=== PATIENT | female | born 1945 | race Caucasian/White ===

== ENCOUNTER 2017-06-08 15:55 | Inpatient (IN) ==
[2017-06-08] MEDS ORDERED: Albuterol 2.5 MG/3 ML NEBULIZER IH PRN (18:42)
[2017-06-08] MEDS: Apixaban 5 MG TABLET PO SCH (20:30)
[2017-06-08] MEDS: Benzonatate 100 MG CAPSULE PO SCH (20:30)
[2017-06-09] MEDS: Methocarbamol 500 MG TABLET PO PRN ×2 (03:35→20:54)
[2017-06-09] MEDS ORDERED: CEFTRIAXONE SODIUM 2 GM IV SCH (09:00)
[2017-06-09] MEDS: (Liraglutide [Victoza 3-Pak] 1.2 MG) PO SCH (09:50)
[2017-06-09] MEDS: Aspirin Enteric Coated 81 MG Tablet PO SCH (09:51)
[2017-06-09] MEDS: Benzonatate 100 MG CAPSULE PO SCH ×3 (09:51→20:54)
[2017-06-09] MEDS: Cholecalciferol (D-3) 1,000 UNIT TABLET PO SCH (09:51)
[2017-06-09] MEDS: Diltiazem CD (24hr) 120 MG CAPSULE PO SCH (09:52)
[2017-06-09] MEDS: Apixaban 5 MG TABLET PO SCH ×2 (09:54→20:53)
--- NOTE | 2017-06-09 14:18 | Internal Med History&Physical ---
Date of Encounter: 06/09/17 Time of Encounter: 12:15 Assessment and Plan (1) Empyema of right pleural space Current visit: No Status: Acute Strep pneumonia was cultured on pleural fluid. Continue IV Rocephin through approximately June 23. Will add lactobacillus. (2) Diabetes Current visit: No Status: Chronic We will check hemoglobin A1c in a.m. Continue Victoza and Accu-Cheks with SSI. Qualifiers: Diabetes mellitus type: type 2 Diabetes mellitus fci insulin use: without fci use Diabetes mellitus complication status: with hyperglycemia Qualified Code(s): E11.65 - Type 2 diabetes mellitus with hyperglycemia (3) Pelvic mass Current visit: No Status: Acute Await pathology report. She is scheduled to see oncologist at [facility] in a few days. (4) Essential hypertension Current visit: No Status: Chronic Continue diltiazem, lisinopril, and metoprolol. (5) A-fib Current visit: No Status: Chronic Continue Eliquis Qualifiers: Atrial fibrillation type: paroxysmal Qualified Code(s): I48.0 - Paroxysmal atrial fibrillation (6) Anemia Current visit: No Status: Suspected We will order anemia testing in a.m. Qualifiers: Anemia type: other cause Other causes of anemia: chronic disease, other Qualified Code(s): D63.8 - Anemia in other chronic diseases classified elsewhere Internal Medicine - H&P: HPI Chief complaint: Pleural effusion, abdominal mass Admitted From: Hospital to Hospital Transfer Plans for Post Hospital Care: Home History of present illness: Ms. Serrato is a 72 year old female who was hospitalized at [facility] May 24- after presenting with dyspnea and a large right pleural effusion. She had thoracentesis initially which was followed by video-assisted thorascopic decortication with pleural space washout. No malignant cells were seen on cytology of the pleural fluid. Blood cultures were positive for strep pneumoniae. She completed 2 weeks out of a total of 4 weeks of IV antibiotics for empyema. She was transferred to [facility] swing bed for ongoing care needs. She had biopsy of a right adnexal mass 06/06/2017 with pathology report pending. There was concern for ovarian malignancy. Past Med Surg Social Fam HX - Past Medical History Medical history: asthma, diabetes, GERD, hypertension, other Psychiatric history: no psych history - Past Surgical History Surgical History: no surgical history - Social History Smoking Status: Former smoker Smokeless Tobacco Status: No Alcohol use: none Drug use: none - Family History Brother Hx Family Cardiac Disorders: Yes Internal Medicine - H&P: Meds Benzonatate [Tessalon] 100 mg PO TID #20 capsule 05/22/17 [Rx] Albuterol Neb [Proventil Neb] 2.5 mg IH Q6H PRN 05/24/17 [History] Albuterol Sulfate [Albuterol Inhaler] 2 puff IH QID PRN 05/24/17 [History] Aspirin [Lo-Dose Aspirin EC] 81 mg PO DAILY 05/24/17 [History] Cholecalciferol (Vitamin D3) [Vitamin D3] 5,000 unit PO QWEEK 05/24/17 [History] Liraglutide [Victoza 3-Rene] 1.2 mg PO DAILY 05/24/17 [History] Lisinopril 2.5 mg PO DAILY 05/24/17 [History] Meclizine HCl [Verticalm] 25 mg PO DAILY PRN 05/24/17 [History] Ranitidine HCl [Acid Senior Linux Unix Administrator] 150 mg PO BID PRN 05/24/17 [History] Sertraline [Zoloft] 50 mg PO DAILY 05/24/17 [History] Apixaban [Eliquis] 5 mg PO BID #60 tablet 06/07/17 [Rx] Ceftriaxone Sodium [Ceftriaxone] 2 gm IV DAILY 13 Days #13 vial.port 06/07/17 [ Rx] Diltiazem CD (24hr) [Cardizem CD] 120 mg PO DAILY #30 cap.er.24h 06/07/17 [Rx] Docusate [Colace] 100 mg PO BID #30 capsule 06/07/17 [Rx] Methocarbamol [Robaxin] 500 mg PO Q6HR PRN #30 tablet 06/07/17 [Rx] Metoprolol [Lopressor] 25 mg PO BID #60 tablet 06/07/17 [Rx] Zolpidem [Ambien] 5 mg PO HS PRN 5 Days #5 tablet 06/07/17 [Rx] 3 Allergy/AdvReac Type Severity Reaction Status Date / Time Amoxicillin [From Augmentin] Allergy Rash Verified 05/24/17 10:40 azithromycin Allergy Hives Verified 05/24/17 10:40 cephalexin Allergy See Verified 06/07/17 11:56 Comments clavulanic acid Allergy Rash Verified 05/24/17 10:40 [From Augmentin] doxycycline Allergy Rash Verified 05/24/17 10:40 omeprazole Allergy Rash Verified 05/24/17 10:40 All Systems PM: A 10-system review of systems was performed and is negative for pertinent findings except as documented above in the HPI. Review of systems: Gen.: She states her weight has been stable the past few months Cardiovascular: She has history of hypertension and was found to have atrial fibrillation during her [facility] stay. She denies heart failure VT DVT or pulmonary embolus Respiratory: She smoked from age [age] up to 2 packs per days. She had PFTs approximately 2012 and was told she had COPD. She does not wear home oxygen. GI: She denies disorders of her liver gallbladder or exocrine pancreas : She has kidney stones. She denies other kidney or bladder disorders Neurologic: She denies large distribution strokes or seizures. Endocrine: She was diagnosed with DM 2 approximately 2011. She denies thyroid disease or hyperlipidemia Hematology/oncology: She has anemia but denies blood disorders or documented malignancy Psychiatric: She has anxiety and depression but denies other mental health issues [place] skeletal: She has DJD but denies gout or other bone joint or muscle disorders. - Constitutional Vitals: Temp Pulse Resp BP Pulse Ox 98.3 F 80 20 130/79 92 06/09/17 07:42 06/09/17 09:16 06/09/17 07:42 06/09/17 07:42 06/09/17 09:16 Exam: Gen.: She is a well developed well-nourished female sitting on the side of bed resting comfortably HEENT: Head is atraumatic and normocephalic. Eyes: EOMI. There is no scleral icterus. Mouth: Mucosa is moist. Neck: Supple and nontender. There is no thyromegaly or adenopathy noted. Heart: Regular without murmurs gallops or ectopics Lungs: No wheezes or crackles are heard. Back: She has a healing incision in her mid right posterior thorax from recent surgery. Back is straight without flank tenderness otherwise. Abdomen: Soft and nontender. No masses or guarding are noted. Extremities: There is no cyanosis edema or clubbing noted. Dorsalis pedis and posttibial pulses are 1-2 over 2 bilaterally. Neurologic: Mental status: She is talkative and a good historian. Cranial nerves: Smile is symmetric. Forehead wrinkles bilaterally. Tongue protrudes midline. EOMI. Motor: There is no pronator drift. Cerebellar: Finger to nose is intact bilaterally. Skin: Warm and dry
[2017-06-09] MEDS: Ondansetron ODT 4 MG TAB.RAPDIS SL PRN (14:43)
[2017-06-09] MEDS: Lactobacillus 1 EACH CAP.SPRINK PO SCH (20:54)
[2017-06-10 05:57] LABS: Basophils # 0.1 K/mcL (0.0-0.2); Basophils % 1.2 %; Eosinophils # 0.3 K/mcL (0.0-0.6); Eosinophils % 5.2 %; Hematocrit 28.9 % (35.3-44.9); Hemoglobin 9.4 g/dL (11.5-15.4); Immature Granulocytes % 0.5 % (0-4); Lymphocytes # 1.7 K/mcL (0.6-4.6); Lymphocytes % 27.5 %; Mean Corpuscular HGB Conc 32.5 g/dL (31.6-35.5); Mean Corpuscular Hemoglobin 30.1 pg (28.0-33.3); Mean Corpuscular Volume 92.6 fL (83.0-100.0); Mean Platelet Volume 9.4 fL (9.4-12.4); Monocytes # 0.6 K/mcL (0.0-1.3); Monocytes % 9.2 %; Neutrophils # 3.4 K/mcL (1.6-8.9); Platelet Count 401 K/mcL (140-400); Red Blood Count 3.12 M/mcL (3.82-4.97); Red Cell Distribution Width 13.6 % (11.5-14.5); Segmented Neutrophils % 56.4 %
[2017-06-10] MEDS: (Liraglutide [Victoza 3-Pak] 1.2 MG) PO SCH (08:38)
[2017-06-10] MEDS: Diltiazem CD (24hr) 120 MG CAPSULE PO SCH (08:39)
[2017-06-10] MEDS: Aspirin Enteric Coated 81 MG Tablet PO SCH (08:39)
[2017-06-10] MEDS: Cholecalciferol (D-3) 1,000 UNIT TABLET PO SCH (08:39)
[2017-06-10] MEDS: Lactobacillus 1 EACH CAP.SPRINK PO SCH ×2 (08:39→20:19)
[2017-06-10] MEDS: Apixaban 5 MG TABLET PO SCH ×2 (08:44→20:23)
[2017-06-10 09:40] LABS: Estimated Average Glucose 146 mg/dl; Hemoglobin A1C 6.7 %
[2017-06-10 09:49] LABS: % Iron Saturation 12 % (15-50); Ferritin 354 ng/ml (10-120); Iron 22 mcg/dL (50-170); Transferrin 126 mg/dL (203-362)
[2017-06-10 10:14] LABS: Folate 11.3 ng/mL (3.0-16.0)
--- NOTE | 2017-06-10 14:09 | Internal Med Progress Note ---
Date of Encounter: 06/10/17 Time of Encounter: 13:50 - Assessment and plan (1) Empyema of right pleural space Current Visit: No Status: Acute Assessment and plan: June 10. Strep pneumonia was cultured on pleural fluid. Continue IV Rocephin with lactobacillus through approximately June 23. (2) Diabetes Current Visit: No Status: Chronic Assessment and plan: June 10. Hemoglobin A1c was acceptable at 6.7%. Continue Victoza and Accu- Cheks with SSI. 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 Biopsy report pending. She will follow up at [facility] after discharge. (4) Essential hypertension Current Visit: No Status: Chronic Assessment and plan: June 10. Continue diltiazem, lisinopril, and metoprolol (5) A-fib Current Visit: No Status: Chronic Assessment and plan: June 10. Continue Eliquis Qualifiers: Atrial fibrillation type: paroxysmal Qualified Code(s): I48.0 - Paroxysmal atrial fibrillation (6) Anemia Current Visit: No Status: Suspected Assessment and plan: June 10. Anemia testing showed iron 22, transferrin saturation 12%, transferrin 126, ferritin 354, B12 905, and folate 11.3. Will start ferrous sulfate with vitamin C in a.m. Qualifiers: Anemia type: other cause Other causes of anemia: chronic disease, other Qualified Code(s): D63.8 - Anemia in other chronic diseases classified elsewhere - Subjective Interval history: June 10. She has no new complaints. - Constitutional Vitals: Temp Pulse Resp BP Pulse Ox 98.1 F 71 22 165/77 95 06/10/17 06:38 06/10/17 06:38 06/10/17 06:38 06/10/17 06:38 06/10/17 06:38 Exam: She is resting comfortably in bed and appears in no acute distress. Her affect is bright and cheerful. I reviewed her medications. I reviewed pertinent lab results with her. Internal Medicine: Result - Labs CBC & Chem 7: 06/10/17 05:42 Labs: Short CBC 06/10/17 Range/Units 05:42 WBC 6.0 (4.3-11.1) K/mcL Hgb 9.4 L (11.5-15.4) g/dL Hct 28.9 L (35.3-44.9) % Plt Count 401 H (140-400) K/mcL Neutrophils # 3.4 (1.6-8.9) K/mcL Consult Discharge Plan - Plan Referrals: Fermin Horton, [Primary Care Provider] - 1 week
[2017-06-10] MEDS: Benzonatate 100 MG CAPSULE PO SCH ×2 (15:54→20:19)
[2017-06-10] MEDS: Methocarbamol 500 MG TABLET PO PRN (20:23)
[2017-06-11] MEDS: Ibuprofen 400 MG TABLET PO PRN (02:27)
[2017-06-11] MEDS: Ascorbic Acid 500 MG TABLET PO SCH (06:23)
[2017-06-11] MEDS ORDERED: CefTRIAXone 2,000 MG VIAL ONE (08:49)
[2017-06-11] MEDS ORDERED: cefTRIAXone 2,000 MG in Water for inj. (sterile) 20 ML 20 ML IVPB SCH (09:00)
[2017-06-11] MEDS: Apixaban 5 MG TABLET PO SCH ×2 (09:00→20:00)
[2017-06-11] MEDS: Lactobacillus 1 EACH CAP.SPRINK PO SCH ×2 (09:10→20:01)
[2017-06-11] MEDS: Diltiazem CD (24hr) 120 MG CAPSULE PO SCH (09:11)
[2017-06-11] MEDS: Cholecalciferol (D-3) 1,000 UNIT TABLET PO SCH (09:11)
[2017-06-11] MEDS: Aspirin Enteric Coated 81 MG Tablet PO SCH (09:11)
[2017-06-11] MEDS: Benzonatate 100 MG CAPSULE PO SCH ×3 (09:11→20:00)
[2017-06-11] MEDS: cefTRIAXone 2,000 MG in Water for inj. (sterile) 20 ML 20 ML IVP SCH (09:15)
[2017-06-11] MEDS: (Liraglutide [Victoza 3-Pak] 1.2 MG) PO SCH (09:16)
[2017-06-11] MEDS: Ondansetron ODT 4 MG TAB.RAPDIS SL PRN (18:47)
[2017-06-11] MEDS: Famotidine 20 MG TABLET PO PRN (18:49)
[2017-06-12] MEDS: Ibuprofen 400 MG TABLET PO PRN (04:51)
[2017-06-12] MEDS: Methocarbamol 500 MG TABLET PO PRN ×2 (05:02→20:37)
[2017-06-12] MEDS: Ascorbic Acid 500 MG TABLET PO SCH (05:02)
[2017-06-12] MEDS: Lactobacillus 1 EACH CAP.SPRINK PO SCH ×2 (10:26→20:33)
[2017-06-12] MEDS: Aspirin Enteric Coated 81 MG Tablet PO SCH (10:26)
[2017-06-12] MEDS: Apixaban 5 MG TABLET PO SCH ×2 (10:26→20:37)
[2017-06-12] MEDS: Cholecalciferol (D-3) 1,000 UNIT TABLET PO SCH (10:26)
[2017-06-12] MEDS: cefTRIAXone 2,000 MG in Water for inj. (sterile) 20 ML 20 ML IVP SCH (10:27)
[2017-06-12] MEDS: Benzonatate 100 MG CAPSULE PO SCH ×2 (10:28→20:38)
[2017-06-12] MEDS: (Liraglutide [Victoza 3-Pak] 1.2 MG) PO SCH (10:28)
[2017-06-12] MEDS: Diltiazem CD (24hr) 120 MG CAPSULE PO SCH (10:30)
--- NOTE | 2017-06-12 10:47 | Internal Med Progress Note ---
Date of Encounter: 06/12/17 Time of Encounter: 10:40 - Assessment and plan (1) Empyema of right pleural space Current Visit: No Status: Acute Assessment and plan: June 10. Strep pneumonia was cultured on pleural fluid. Continue IV Rocephin with lactobacillus through approximately June 23. (2) Diabetes Current Visit: No Status: Chronic Assessment and plan: June 10. Hemoglobin A1c was acceptable at 6.7%. Continue Victoza and Accu- Cheks with SSI. 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 Biopsy report pending. She will follow up at [facility] after discharge. (4) Essential hypertension Current Visit: No Status: Chronic Assessment and plan: June 10. Continue diltiazem, lisinopril, and metoprolol (5) A-fib Current Visit: No Status: Chronic Assessment and plan: June 10. Continue Eliquis Qualifiers: Atrial fibrillation type: paroxysmal Qualified Code(s): I48.0 - Paroxysmal atrial fibrillation (6) Anemia Current Visit: No Status: Chronic Assessment and plan: June 10. Anemia testing showed iron 22, transferrin saturation 12%, transferrin 126, ferritin 354, B12 905, and folate 11.3. Will start ferrous sulfate with vitamin C in a.m. June 12. Continue ferrous sulfate with vitamin C. Qualifiers: Anemia type: other cause Other causes of anemia: chronic disease, other Qualified Code(s): D63.8 - Anemia in other chronic diseases classified elsewhere - Subjective Interval history: June 10. She has no new complaints. June 12. She has no new complaints. - Constitutional Vitals: Temp Pulse Resp BP Pulse Ox 98.2 F 70 16 170/74 96 06/12/17 07:15 06/12/17 07:15 06/12/17 07:15 06/12/17 07:15 06/12/17 07:15 Exam: She is resting comfortably in bed and appears in no acute distress. Her affect is bright and cheerful. I reviewed her medications. Internal Medicine: Result - Labs CBC & Chem 7: 06/10/17 05:42 Consult Discharge Plan - Plan Referrals: Stiltner,Fermin D, [Primary Care Provider] - 1 week
[2017-06-12] MEDS ORDERED: Benzonatate 100 MG CAPSULE PO PRN (17:21)
[2017-06-13] MEDS: Ascorbic Acid 500 MG TABLET PO SCH (06:21)
[2017-06-13] MEDS: Cholecalciferol (D-3) 1,000 UNIT TABLET PO SCH (09:18)
[2017-06-13] MEDS: Aspirin Enteric Coated 81 MG Tablet PO SCH (09:18)
[2017-06-13] MEDS: Diltiazem CD (24hr) 120 MG CAPSULE PO SCH (09:18)
[2017-06-13] MEDS: Lactobacillus 1 EACH CAP.SPRINK PO SCH ×2 (09:18→20:01)
[2017-06-13] MEDS: Apixaban 5 MG TABLET PO SCH ×2 (09:18→20:01)
[2017-06-13] MEDS: (Liraglutide [Victoza 3-Pak] 1.2 MG) PO SCH (09:19)
[2017-06-13] MEDS: cefTRIAXone 2,000 MG in Water for inj. (sterile) 20 ML 20 ML IVP SCH (09:19)
[2017-06-13] MEDS: Ibuprofen 400 MG TABLET PO PRN (18:10)
[2017-06-13] MEDS: Methocarbamol 500 MG TABLET PO PRN (20:01)
[2017-06-14] MEDS: Ascorbic Acid 500 MG TABLET PO SCH (06:21)
[2017-06-14] MEDS: Cholecalciferol (D-3) 1,000 UNIT TABLET PO SCH (09:45)
[2017-06-14] MEDS: Apixaban 5 MG TABLET PO SCH ×2 (09:45→20:07)
[2017-06-14] MEDS: Aspirin Enteric Coated 81 MG Tablet PO SCH (09:45)
[2017-06-14] MEDS: Diltiazem CD (24hr) 120 MG CAPSULE PO SCH (09:45)
[2017-06-14] MEDS: Lactobacillus 1 EACH CAP.SPRINK PO SCH ×2 (09:45→20:07)
[2017-06-14] MEDS: cefTRIAXone 2,000 MG in Water for inj. (sterile) 20 ML 20 ML IVP SCH (10:07)
[2017-06-14] MEDS: (Liraglutide [Victoza 3-Pak] 1.2 MG) PO SCH (10:07)
--- NOTE | 2017-06-14 12:20 | Internal Med Progress Note ---
Date of Encounter: 06/14/17 Time of Encounter: 12:10 - Assessment and plan (1) Empyema of right pleural space Current Visit: No Status: Acute Assessment and plan: June 10. Strep pneumonia was cultured on pleural fluid. Continue IV Rocephin with lactobacillus through approximately June 23. (2) Diabetes Current Visit: No Status: Chronic Assessment and plan: June 10. Hemoglobin A1c was acceptable at 6.7%. Continue Victoza and Accu- Cheks with SSI. June 14. Blood sugars acceptable. Continue present regimen. Qualifiers: Diabetes mellitus type: type 2 Diabetes mellitus keno terminal operator insulin use: without keno terminal operator use Diabetes mellitus complication status: with hyperglycemia Qualified Code(s): E11.65 - Type 2 diabetes mellitus with hyperglycemia (3) Pelvic mass Current Visit: No Status: Acute Assessment and plan: June 10. Biopsy report pending. She will follow up at [facility] after discharge. (4) Essential hypertension Current Visit: No Status: Chronic Assessment and plan: June 10. Continue diltiazem, lisinopril, and metoprolol (5) A-fib Current Visit: No Status: Chronic Assessment and plan: June 10. Continue Eliquis Qualifiers: Atrial fibrillation type: paroxysmal Qualified Code(s): I48.0 - Paroxysmal atrial fibrillation (6) Anemia Current Visit: No Status: Chronic Assessment and plan: June 10. Anemia testing showed iron 22, transferrin saturation 12%, transferrin 126, ferritin 354, B12 905, and folate 11.3. Will start ferrous sulfate with vitamin C in a.m. June 12. Continue ferrous sulfate with vitamin C. Qualifiers: Anemia type: other cause Other causes of anemia: chronic disease, other Qualified Code(s): D63.8 - Anemia in other chronic diseases classified elsewhere - Subjective Interval history: June 10. She has no new complaints. June 12. She has no new complaints. June 14. She reports occasional epistaxis episode. She has occasional nausea. - Constitutional Vitals: Temp Pulse Resp BP Pulse Ox 97.7 F 81 20 142/81 97 06/14/17 06:51 06/14/17 09:08 06/14/17 06:51 06/14/17 09:08 06/14/17 09:08 Exam: She is sitting in a chair at bedside eating lunch and appears comfortable. Her affect is bright and cheerful. I reviewed her medications and past lab results. Internal Medicine: Result - Labs CBC & Chem 7: 06/10/17 05:42 Consult Discharge Plan - Plan Referrals: Fermin Horton DO [Primary Care Provider] - 1 week
[2017-06-14] MEDS: Methocarbamol 500 MG TABLET PO PRN (20:07)
[2017-06-15] MEDS: Methocarbamol 500 MG TABLET PO PRN (05:07)
[2017-06-15] MEDS: Ascorbic Acid 500 MG TABLET PO SCH (05:07)
[2017-06-15 05:20] LABS: Basophils # 0.1 K/mcL (0.0-0.2); Basophils % 1.2 %; Eosinophils # 0.5 K/mcL (0.0-0.6); Hematocrit 33.8 % (35.3-44.9); Hemoglobin 11.1 g/dL (11.5-15.4); Immature Granulocytes % 0.4 % (0-4); Lymphocytes # 2.6 K/mcL (0.6-4.6); Lymphocytes % 34.4 %; Mean Corpuscular HGB Conc 32.8 g/dL (31.6-35.5); Mean Corpuscular Volume 91.4 fL (83.0-100.0); Mean Platelet Volume 9.2 fL (9.4-12.4); Monocytes # 0.7 K/mcL (0.0-1.3); Monocytes % 9.8 %; Neutrophils # 3.6 K/mcL (1.6-8.9); Platelet Count 312 K/mcL (140-400); Red Cell Distribution Width 13.1 % (11.5-14.5); Segmented Neutrophils % 47.2 %
[2017-06-15 05:38] LABS: BUN/Creatinine Ratio 18 (6-26); Blood Urea Nitrogen 10 mg/dL (8-23); Calcium 8.5 mg/dL (8.6-10.3); Carbon Dioxide 34 mEq/L (23-29); Chloride 100 mEq/L (98-107); Glucose 111 mg/dL (70-105); Osmolality,Calculated 282 (280-300); Potassium 4.1 mEq/L (3.5-5.1); Sodium 136 mEq/L (136-145); eGFR For African Americans > 60 (> 60); eGFR For Non-African Americans > 60 (> 60)
[2017-06-15] MEDS: Aspirin Enteric Coated 81 MG Tablet PO SCH (10:04)
[2017-06-15] MEDS: Diltiazem CD (24hr) 120 MG CAPSULE PO SCH (10:04)
[2017-06-15] MEDS: Apixaban 5 MG TABLET PO SCH ×2 (10:04→20:38)
[2017-06-15] MEDS: Lactobacillus 1 EACH CAP.SPRINK PO SCH ×2 (10:04→20:38)
[2017-06-15] MEDS: Cholecalciferol (D-3) 1,000 UNIT TABLET PO SCH (10:05)
[2017-06-15] MEDS: cefTRIAXone 2,000 MG in Water for inj. (sterile) 20 ML 20 ML IVP SCH (10:07)
[2017-06-15] MEDS: (Liraglutide [Victoza 3-Pak] 1.2 MG) PO SCH (10:08)
[2017-06-15] MEDS: Acetaminophen 325 MG TABLET PO PRN (18:45)
[2017-06-16] MEDS: Acetaminophen 325 MG TABLET PO PRN (04:43)
[2017-06-16] MEDS: Ascorbic Acid 500 MG TABLET PO SCH (04:53)
[2017-06-16] MEDS: Diltiazem CD (24hr) 120 MG CAPSULE PO SCH (08:59)
[2017-06-16] MEDS: Apixaban 5 MG TABLET PO SCH ×2 (09:00→21:52)
[2017-06-16] MEDS: Cholecalciferol (D-3) 1,000 UNIT TABLET PO SCH (09:00)
[2017-06-16] MEDS: Lactobacillus 1 EACH CAP.SPRINK PO SCH ×2 (09:00→21:52)
[2017-06-16] MEDS: Aspirin Enteric Coated 81 MG Tablet PO SCH (09:00)
[2017-06-16] MEDS: (Liraglutide [Victoza 3-Pak] 1.2 MG) PO SCH (09:01)
[2017-06-16] MEDS: cefTRIAXone 2,000 MG in Water for inj. (sterile) 20 ML 20 ML IVP SCH (09:49)
[2017-06-16] MEDS: Methocarbamol 500 MG TABLET PO PRN (21:52)
[2017-06-17] MEDS: Ascorbic Acid 500 MG TABLET PO SCH (06:09)
[2017-06-17] MEDS: Lactobacillus 1 EACH CAP.SPRINK PO SCH ×2 (08:07→21:10)
[2017-06-17] MEDS: Diltiazem CD (24hr) 120 MG CAPSULE PO SCH (08:07)
[2017-06-17] MEDS: Aspirin Enteric Coated 81 MG Tablet PO SCH (08:07)
[2017-06-17] MEDS: Apixaban 5 MG TABLET PO SCH ×2 (08:08→21:10)
[2017-06-17] MEDS: Cholecalciferol (D-3) 1,000 UNIT TABLET PO SCH (08:08)
[2017-06-17] MEDS: (Liraglutide [Victoza 3-Pak] 1.2 MG) PO SCH (08:09)
[2017-06-17] MEDS: cefTRIAXone 2,000 MG in Water for inj. (sterile) 20 ML 20 ML IVP SCH (08:10)
--- NOTE | 2017-06-17 14:36 | Internal Med Progress Note ---
Date of Encounter: 06/17/17 Time of Encounter: 14:25 - Assessment and plan (1) Empyema of right pleural space Current Visit: No Status: Acute Assessment and plan: June 10. Strep pneumonia was cultured on pleural fluid. Continue IV Rocephin with lactobacillus through approximately June 23. (2) Diabetes Current Visit: No Status: Chronic Assessment and plan: June 10. Hemoglobin A1c was acceptable at 6.7%. Continue Victoza and Accu- Cheks with SSI. June 14. Blood sugars acceptable. Continue present regimen. Qualifiers: Diabetes mellitus type: type 2 Diabetes mellitus salvage determiner insulin use: without salvage determiner use Diabetes mellitus complication status: with hyperglycemia Qualified Code(s): E11.65 - Type 2 diabetes mellitus with hyperglycemia (3) Pelvic mass Current Visit: No Status: Acute Assessment and plan: June 10. Biopsy report pending. She will follow up at [facility] after discharge. (4) Essential hypertension Current Visit: No Status: Chronic Assessment and plan: June 10. Continue diltiazem, lisinopril, and metoprolol (5) A-fib Current Visit: No Status: Chronic Assessment and plan: June 10. Continue Eliquis Qualifiers: Atrial fibrillation type: paroxysmal Qualified Code(s): I48.0 - Paroxysmal atrial fibrillation (6) Anemia Current Visit: No Status: Chronic Assessment and plan: June 10. Anemia testing showed iron 22, transferrin saturation 12%, transferrin 126, ferritin 354, B12 905, and folate 11.3. Will start ferrous sulfate with vitamin C in a.m. June 12. Continue ferrous sulfate with vitamin C. Qualifiers: Anemia type: other cause Other causes of anemia: chronic disease, other Qualified Code(s): D63.8 - Anemia in other chronic diseases classified elsewhere - Subjective Interval history: June 10. She has no new complaints. June 12. She has no new complaints. June 14. She reports occasional epistaxis episode. She has occasional nausea. June 17. She has no new complaints and feels better overall. - Constitutional Vitals: Temp Pulse Resp BP Pulse Ox 98.6 F 63 22 159/78 97 06/17/17 06:28 06/17/17 06:28 06/17/17 06:28 06/17/17 06:28 06/17/17 06:28 Exam: She is resting comfortably in bed and appears in no acute distress. Her affect is bright and cheerful. I reviewed her medications and lab results. Internal Medicine: Result - Labs CBC & Chem 7: 06/15/17 05:15 06/15/17 05:15 Consult Discharge Plan - Plan Referrals: Fermin Horton DO [Primary Care Provider] - 1 week
[2017-06-17] MEDS: Methocarbamol 500 MG TABLET PO PRN (21:11)
[2017-06-18] MEDS: Ascorbic Acid 500 MG TABLET PO SCH (06:41)
[2017-06-18] MEDS: Diltiazem CD (24hr) 120 MG CAPSULE PO SCH (09:13)
[2017-06-18] MEDS: Aspirin Enteric Coated 81 MG Tablet PO SCH (09:13)
[2017-06-18] MEDS: Lactobacillus 1 EACH CAP.SPRINK PO SCH ×2 (09:13→21:08)
[2017-06-18] MEDS: Cholecalciferol (D-3) 1,000 UNIT TABLET PO SCH (09:14)
[2017-06-18] MEDS: (Liraglutide [Victoza 3-Pak] 1.2 MG) PO SCH (09:16)
[2017-06-18] MEDS: cefTRIAXone 2,000 MG in Water for inj. (sterile) 20 ML 20 ML IVP SCH (09:16)
[2017-06-18] MEDS: Apixaban 5 MG TABLET PO SCH ×2 (09:17→21:10)
[2017-06-18] MEDS: Acetaminophen 325 MG TABLET PO PRN (16:00)
[2017-06-18] MEDS: Methocarbamol 500 MG TABLET PO PRN (21:09)
[2017-06-18] MEDS: Ondansetron ODT 4 MG TAB.RAPDIS SL PRN (21:13)
[2017-06-19] MEDS: Ascorbic Acid 500 MG TABLET PO SCH (05:49)
[2017-06-19] MEDS: Diltiazem CD (24hr) 120 MG CAPSULE PO SCH (09:11)
[2017-06-19] MEDS: Apixaban 5 MG TABLET PO SCH ×2 (09:11→20:41)
[2017-06-19] MEDS: Lactobacillus 1 EACH CAP.SPRINK PO SCH ×2 (09:12→20:41)
[2017-06-19] MEDS: Cholecalciferol (D-3) 1,000 UNIT TABLET PO SCH (09:13)
[2017-06-19] MEDS: Aspirin Enteric Coated 81 MG Tablet PO SCH (09:13)
[2017-06-19] MEDS: (Liraglutide [Victoza 3-Pak] 1.2 MG) PO SCH (09:13)
[2017-06-19] MEDS: cefTRIAXone 2,000 MG in Water for inj. (sterile) 20 ML 20 ML IVP SCH (09:14)
--- NOTE | 2017-06-19 10:34 | Internal Med Progress Note ---
Date of Encounter: 06/19/17 Time of Encounter: 10:25 - Assessment and plan (1) Empyema of right pleural space Current Visit: No Status: Acute Assessment and plan: June 10. Strep pneumonia was cultured on pleural fluid. Continue IV Rocephin with lactobacillus through approximately June 23. (2) Diabetes Current Visit: No Status: Chronic Assessment and plan: June 10. Hemoglobin A1c was acceptable at 6.7%. Continue Victoza and Accu- Cheks with SSI. June 14. Blood sugars acceptable. Continue present regimen. 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 Biopsy report pending. She will follow up at [facility] after discharge. June 19. She has an appointment tomorrow at [facility] to review path report and discuss any needed treatment plans (4) Essential hypertension Current Visit: No Status: Chronic Assessment and plan: June 10. Continue diltiazem, lisinopril, and metoprolol (5) A-fib Current Visit: No Status: Chronic Assessment and plan: June 10. Continue Eliquis Qualifiers: Atrial fibrillation type: paroxysmal Qualified Code(s): I48.0 - Paroxysmal atrial fibrillation (6) Anemia Current Visit: No Status: Chronic Assessment and plan: June 10. Anemia testing showed iron 22, transferrin saturation 12%, transferrin 126, ferritin 354, B12 905, and folate 11.3. Will start ferrous sulfate with vitamin C in a.m. June 12. Continue ferrous sulfate with vitamin C. Qualifiers: Anemia type: other cause Other causes of anemia: chronic disease, other Qualified Code(s): D63.8 - Anemia in other chronic diseases classified elsewhere - Subjective Interval history: June 10. She has no new complaints. June 12. She has no new complaints. June 14. She reports occasional epistaxis episode. She has occasional nausea. June 17. She has no new complaints and feels better overall. June 19. She has no new complaints. - Constitutional Vitals: Temp Pulse Resp BP Pulse Ox 98.7 F 69 18 149/78 97 06/19/17 06:31 06/19/17 06:31 06/19/17 06:31 06/19/17 06:31 06/19/17 06:31 Exam: She is resting comfortably in bed and is in no acute distress. Her affect is bright and cheerful. I reviewed her medications and lab results. Internal Medicine: Result - Labs CBC & Chem 7: 06/15/17 05:15 06/15/17 05:15 Consult Discharge Plan - Plan Referrals: Fermin Horton DO [Primary Care Provider] - 1 week
[2017-06-19] MEDS: Famotidine 20 MG TABLET PO PRN (14:50)
[2017-06-19] MEDS ORDERED: Mag Hydrox/Al Hydrox/Simeth 30 ML UDC PO PRN (16:04)
[2017-06-19] MEDS: Methocarbamol 500 MG TABLET PO PRN (20:41)
[2017-06-20] MEDS: Ascorbic Acid 500 MG TABLET PO SCH (06:13)
[2017-06-20] MEDS: Aspirin Enteric Coated 81 MG Tablet PO SCH (07:48)
[2017-06-20] MEDS: Cholecalciferol (D-3) 1,000 UNIT TABLET PO SCH (07:48)
[2017-06-20] MEDS: Lactobacillus 1 EACH CAP.SPRINK PO SCH ×2 (07:48→21:03)
[2017-06-20] MEDS: cefTRIAXone 2,000 MG in Water for inj. (sterile) 20 ML 20 ML IVP SCH (07:49)
[2017-06-20] MEDS: Apixaban 5 MG TABLET PO SCH ×2 (07:53→21:03)
[2017-06-20] MEDS: (Liraglutide [Victoza 3-Pak] 1.2 MG) PO SCH (07:53)
[2017-06-20] MEDS: Diltiazem CD (24hr) 120 MG CAPSULE PO SCH (16:38)
[2017-06-20] MEDS ORDERED: Isovue-370 500 ML INFUS..BTL IV ONE (17:06)
[2017-06-20] MEDS: Methocarbamol 500 MG TABLET PO PRN (21:03)
[2017-06-21] MEDS: Ascorbic Acid 500 MG TABLET PO SCH (06:26)
[2017-06-21] MEDS: cefTRIAXone 2,000 MG in Water for inj. (sterile) 20 ML 20 ML IVP SCH (08:14)
[2017-06-21] MEDS: Apixaban 5 MG TABLET PO SCH ×2 (08:14→21:41)
[2017-06-21] MEDS: Lactobacillus 1 EACH CAP.SPRINK PO SCH ×2 (08:15→21:41)
[2017-06-21] MEDS: Cholecalciferol (D-3) 1,000 UNIT TABLET PO SCH (08:15)
[2017-06-21] MEDS: Aspirin Enteric Coated 81 MG Tablet PO SCH (08:15)
[2017-06-21] MEDS: Diltiazem CD (24hr) 120 MG CAPSULE PO SCH (08:16)
[2017-06-21] MEDS: (Liraglutide [Victoza 3-Pak] 1.2 MG) PO SCH (08:16)
[2017-06-21] MEDS: Ondansetron ODT 4 MG TAB.RAPDIS SL PRN (12:03)
[2017-06-21] MEDS: Famotidine 20 MG TABLET PO PRN (12:03)
--- NOTE | 2017-06-21 15:21 | Internal Med Progress Note ---
Date of Encounter: 06/21/17 Time of Encounter: 15:10 - Assessment and plan (1) Empyema of right pleural space Current Visit: No Status: Acute Assessment and plan: June 10. Strep pneumonia was cultured on pleural fluid. Continue IV Rocephin with lactobacillus through approximately June 23. June 21. Continue Rocephin and lactobacillus through 06/25/2017. (2) Diabetes Current Visit: No Status: Chronic Assessment and plan: June 10. Hemoglobin A1c was acceptable at 6.7%. Continue Victoza and Accu- Cheks with SSI. June 14. Blood sugars acceptable. Continue present regimen. 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 Biopsy report pending. She will follow up at [facility] after discharge. June 19. She has an appointment tomorrow at [facility] to review path report and discuss any needed treatment plans June 21. As per [facility]/oncology. (4) Essential hypertension Current Visit: No Status: Chronic Assessment and plan: June 10. Continue diltiazem, lisinopril, and metoprolol (5) A-fib Current Visit: No Status: Chronic Assessment and plan: June 10. Continue Eliquis Qualifiers: Atrial fibrillation type: paroxysmal Qualified Code(s): I48.0 - Paroxysmal atrial fibrillation (6) Anemia Current Visit: No Status: Chronic Assessment and plan: June 10. Anemia testing showed iron 22, transferrin saturation 12%, transferrin 126, ferritin 354, B12 905, and folate 11.3. Will start ferrous sulfate with vitamin C in a.m. June 12. Continue ferrous sulfate with vitamin C. Qualifiers: Anemia type: other cause Other causes of anemia: chronic disease, other Qualified Code(s): D63.8 - Anemia in other chronic diseases classified elsewhere - Subjective Interval history: June 10. She has no new complaints. June 12. She has no new complaints. June 14. She reports occasional epistaxis episode. She has occasional nausea. June 17. She has no new complaints and feels better overall. June 19. She has no new complaints. June 21. She has no new complaints. She reports she was told at [facility] she did not have malignancy. A GI/BSO is scheduled for 07/13/2017. - Constitutional Vitals: Temp Pulse Resp BP Pulse Ox 98.0 F 76 22 121/67 97 06/21/17 06:48 06/21/17 06:48 06/21/17 06:48 06/21/17 06:48 06/21/17 06:48 Exam: She is resting comfortably in bed and appears in no acute distress. Her affect is bright and cheerful. I reviewed her medications and lab results. Internal Medicine: Result - Labs CBC & Chem 7: 06/15/17 05:15 06/15/17 05:15 - Impressions Impressions Chest CT 06/20/17 17:06 IMPRESSION: Interval decrease in size of right pleural effusion as well as degree of right lower lobe consolidation. Interval development of moderate left pleural effusion with associated dependent left lower lobe airspace disease, atelectasis or pneumonia. Small hiatal hernia. Interval slight increase in amount of perihepatic and perisplenic ascites. D/ / Sumaya Morales Cha, MD / Sumaya Morales Cha, MD Interpreting Provider: Sumaya Morales Cha, MD - VTE Documentation of Mechanical Device: Graduated compression elastic hosiery Consult Discharge Plan - Plan Referrals: Fermin Horton DO [Primary Care Provider] - 1 week
[2017-06-21] MEDS: Methocarbamol 500 MG TABLET PO PRN (22:01)
[2017-06-22] MEDS: Ascorbic Acid 500 MG TABLET PO SCH (06:41)
[2017-06-22] MEDS: Apixaban 5 MG TABLET PO SCH ×2 (10:26→21:30)
[2017-06-22] MEDS: Cholecalciferol (D-3) 1,000 UNIT TABLET PO SCH (10:26)
[2017-06-22] MEDS: Aspirin Enteric Coated 81 MG Tablet PO SCH (10:26)
[2017-06-22] MEDS: Lactobacillus 1 EACH CAP.SPRINK PO SCH ×2 (10:27→21:28)
[2017-06-22] MEDS: Diltiazem CD (24hr) 120 MG CAPSULE PO SCH (10:27)
[2017-06-22] MEDS: cefTRIAXone 2,000 MG in Water for inj. (sterile) 20 ML 20 ML IVP SCH (10:27)
[2017-06-22] MEDS: (Liraglutide [Victoza 3-Pak] 1.2 MG) PO SCH (10:28)
[2017-06-22] MEDS: Methocarbamol 500 MG TABLET PO PRN (21:35)
[2017-06-23] MEDS: Ascorbic Acid 500 MG TABLET PO SCH (06:47)
[2017-06-23] MEDS: cefTRIAXone 2,000 MG in Water for inj. (sterile) 20 ML 20 ML IVP SCH (12:34)
[2017-06-23] MEDS: Cholecalciferol (D-3) 1,000 UNIT TABLET PO SCH (12:36)
[2017-06-23] MEDS: Aspirin Enteric Coated 81 MG Tablet PO SCH (12:36)
[2017-06-23] MEDS: Apixaban 5 MG TABLET PO SCH ×2 (12:36→20:48)
[2017-06-23] MEDS: Lactobacillus 1 EACH CAP.SPRINK PO SCH ×2 (12:36→20:48)
[2017-06-23] MEDS: Diltiazem CD (24hr) 120 MG CAPSULE PO SCH (12:37)
[2017-06-23] MEDS: (Liraglutide [Victoza 3-Pak] 1.2 MG) PO SCH (12:37)
[2017-06-23] MEDS: Famotidine 20 MG TABLET PO PRN (12:47)
--- NOTE | 2017-06-23 16:36 | Internal Med Progress Note ---
Date of Encounter: 06/23/17 Time of Encounter: 16:25 - Assessment and plan (1) Empyema of right pleural space Current Visit: No Status: Acute Assessment and plan: June 10. Strep pneumonia was cultured on pleural fluid. Continue IV Rocephin with lactobacillus through approximately June 23. June 21. Continue Rocephin and lactobacillus through 06/25/2017. (2) Diabetes Current Visit: No Status: Chronic Assessment and plan: June 10. Hemoglobin A1c was acceptable at 6.7%. Continue Victoza and Accu- Cheks with SSI. June 14. Blood sugars acceptable. Continue present regimen. Qualifiers: Diabetes mellitus type: type 2 Diabetes mellitus long term care pharmacist insulin use: without jail use Diabetes mellitus complication status: with hyperglycemia Qualified Code(s): E11.65 - Type 2 diabetes mellitus with hyperglycemia (3) Pelvic mass Current Visit: No Status: Acute Assessment and plan: June 10. Biopsy report pending. She will follow up at [facility] [place] after discharge. June 19. She has an appointment tomorrow at [facility] to review path report and discuss any needed treatment plans June 21. As per [facility] OUTSIDE EVENT SALES SPECIALIST/oncology. (4) Essential hypertension Current Visit: No Status: Chronic Assessment and plan: June 10. Continue diltiazem, lisinopril, and metoprolol (5) A-fib Current Visit: No Status: Chronic Assessment and plan: June 10. Continue Eliquis Qualifiers: Atrial fibrillation type: paroxysmal Qualified Code(s): I48.0 - Paroxysmal atrial fibrillation (6) Anemia Current Visit: No Status: Chronic Assessment and plan: June 10. Anemia testing showed iron 22, transferrin saturation 12%, transferrin 126, ferritin 354, B12 905, and folate 11.3. Will start ferrous sulfate with vitamin C in a.m. June 12. Continue ferrous sulfate with vitamin C. Qualifiers: Anemia type: other cause Other causes of anemia: chronic disease, other Qualified Code(s): D63.8 - Anemia in other chronic diseases classified elsewhere (7) Dyspnea on exertion Current Visit: Yes Status: Acute Assessment and plan: June 23. Will order 6 minute walk for a.m. - Subjective Interval history: June 10. She has no new complaints. June 12. She has no new complaints. June 14. She reports occasional epistaxis episode. She has occasional nausea. June 17. She has no new complaints and feels better overall. June 19. She has no new complaints. June 21. She has no new complaints. She reports she was told at [facility] she did not have malignancy. A GI/BSO is scheduled for 07/13/2017. June 23. She has no new complaints. She reports dyspnea on exertion. - Constitutional Vitals: Temp Pulse Resp BP Pulse Ox 98.6 F 76 15 141/78 93 06/23/17 07:31 06/23/17 07:31 06/23/17 10:13 06/23/17 07:31 06/23/17 10:13 Exam: She is resting comfortably in bed and appears in no acute distress. Her affect is bright and cheerful. I reviewed her medications and lab results. Internal Medicine: Result - Labs CBC & Chem 7: 06/15/17 05:15 06/15/17 05:15 - VTE Documentation of Mechanical Device: Graduated compression elastic hosiery Consult Discharge Plan - Plan Referrals: Fermin Horton DO [Primary Care Provider] - 1 week
[2017-06-24] MEDS: Ascorbic Acid 500 MG TABLET PO SCH (06:09)
[2017-06-24] MEDS: cefTRIAXone 2,000 MG in Water for inj. (sterile) 20 ML 20 ML IVP SCH (09:40)
[2017-06-24] MEDS: Ondansetron ODT 4 MG TAB.RAPDIS SL PRN (09:41)
[2017-06-24] MEDS: Aspirin Enteric Coated 81 MG Tablet PO SCH (09:41)
[2017-06-24] MEDS: (Liraglutide [Victoza 3-Pak] 1.2 MG) PO SCH (09:42)
[2017-06-24] MEDS: Diltiazem CD (24hr) 120 MG CAPSULE PO SCH (09:42)
[2017-06-24] MEDS: Cholecalciferol (D-3) 1,000 UNIT TABLET PO SCH (09:42)
[2017-06-24] MEDS: Lactobacillus 1 EACH CAP.SPRINK PO SCH ×2 (09:42→20:28)
[2017-06-24] MEDS: Apixaban 5 MG TABLET PO SCH ×2 (09:42→23:17)
[2017-06-24] MEDS: Famotidine 20 MG TABLET PO PRN (09:45)
[2017-06-24] MEDS: Methocarbamol 500 MG TABLET PO PRN (20:31)
[2017-06-25] MEDS: Ascorbic Acid 500 MG TABLET PO SCH (06:47)
[2017-06-25 07:28] VITALS: BP 131/65
--- NOTE | 2017-06-25 09:37 | Discharge Summary ---
Date of Encounter: 06/25/17 Time of Encounter: 09:25 - Discharge Diagnosis (1) Empyema of right pleural space Priority: Primary Status: Acute (2) Diabetes Priority: Secondary Status: Chronic Qualifiers: Diabetes mellitus type: type 2 Diabetes mellitus custodial insulin use: without vp of technology use Diabetes mellitus complication status: with hyperglycemia Qualified Code(s): E11.65 - Type 2 diabetes mellitus with hyperglycemia (3) Pelvic mass Priority: Secondary Status: Acute (4) Essential hypertension Priority: Secondary Status: Chronic (5) A-fib Priority: Secondary Status: Chronic Qualifiers: Atrial fibrillation type: paroxysmal Qualified Code(s): I48.0 - Paroxysmal atrial fibrillation (6) Anemia Priority: Secondary Status: Chronic Qualifiers: Anemia type: other cause Other causes of anemia: chronic disease, other Qualified Code(s): D63.8 - Anemia in other chronic diseases classified elsewhere (7) Dyspnea on exertion Priority: Secondary Status: Acute Hospital course: Ms. Serrato is a 72 year old female who was hospitalized at [facility] May 24- after presenting with dyspnea and a large right pleural effusion. She had thoracentesis initially which was followed by video-assisted thorascopic decortication with pleural space washout. No malignant cells were seen on cytology of the pleural fluid. Blood cultures were positive for strep pneumoniae. She completed 2 weeks out of a total of 4 weeks of IV antibiotics for empyema. She was transferred to [facility] swing bed for ongoing care needs. Initial orders were written by the discharging physicians at [facility]. I saw her on June 09 and performed a swing bed history and physical. She continued on IV Rocephin with lactobacillus through June 25. She remained afebrile and had no complications. She complained of intermittent dyspnea especially with exertion. Room air oximetry will be checked on a 6 minute walk prior to discharge. I recommended she have a sleep study to evaluate her for NELLIE with possible nocturnal hypoxemia. She had evaluation at [facility] and was told biopsy of the pelvic mass was benign. It was recommended however she have GI/BSO and this will be done later this month. Her blood pressure was above desirable range so Lisinopril was increased to 10 milligrams daily. She continued on diltiazem and metoprolol and her blood pressure improved. Anemia testing showed iron 22, transferrin saturation 12%, transferrin 126, ferritin 354, folate 11.3, and B12 905. She will continue on ferrous sulfate with vitamin C at discharge. On June 25 arrangements were complete for her to be discharged home. She will have a Rollator walker and a tub transfer bench for DME. She will follow with her PCP Dr. Horton within 1 week. - Time Spent with Patient Total time spent providing and/or coordinating discharge services: - Discharge Medications Prescriptions: Ascorbic Acid [Vitamin C] 500 mg PO 0630 #30 tablet Ferrous Sulfate 325 mg PO 0630 #30 tablet Lisinopril [Zestril] 10 mg PO DAILY #30 tablet Home Medications: Benzonatate [Tessalon] 100 mg PO TID #20 capsule 05/22/17 [Rx] Albuterol Neb [Proventil Neb] 2.5 mg IH Q6H PRN 05/24/17 [History] Albuterol Sulfate [Albuterol Inhaler] 2 puff IH QID PRN 05/24/17 [History] Aspirin [Lo-Dose Aspirin EC] 81 mg PO DAILY 05/24/17 [History] Cholecalciferol (Vitamin D3) [Vitamin D3] 5,000 unit PO QWEEK 05/24/17 [History] Liraglutide [Victoza 3-Rene] 1.2 mg PO DAILY 05/24/17 [History] Meclizine HCl [Verticalm] 25 mg PO DAILY PRN 05/24/17 [History] Ranitidine HCl [Acid Cook Cashier Food Prep] 150 mg PO BID PRN 05/24/17 [History] Sertraline [Zoloft] 50 mg PO DAILY 05/24/17 [History] Apixaban [Eliquis] 5 mg PO BID #60 tablet 06/07/17 [Rx] Diltiazem CD (24hr) [Cardizem CD] 120 mg PO DAILY #30 cap.er.24h 06/07/17 [Rx] Docusate [Colace] 100 mg PO BID #30 capsule 06/07/17 [Rx] Methocarbamol [Robaxin] 500 mg PO Q6HR PRN #30 tablet 06/07/17 [Rx] Metoprolol [Lopressor] 25 mg PO BID #60 tablet 06/07/17 [Rx] Zolpidem [Ambien] 5 mg PO HS PRN 5 Days #5 tablet 06/07/17 [Rx] Ascorbic Acid [Vitamin C] 500 mg PO 0630 #30 tablet 06/25/17 [Rx] Ferrous Sulfate 325 mg PO 0630 #30 tablet 06/25/17 [Rx] Lisinopril [Zestril] 10 mg PO DAILY #30 tablet 06/25/17 [Rx] Allergies/Adverse Reactions: 3 Allergy/AdvReac Type Severity Reaction Status Date / Time Amoxicillin [From Augmentin] Allergy Rash Verified 05/24/17 10:40 azithromycin Allergy Hives Verified 05/24/17 10:40 cephalexin Allergy See Verified 06/07/17 11:56 Comments clavulanic acid Allergy Rash Verified 05/24/17 10:40 [From Augmentin] doxycycline Allergy Rash Verified 05/24/17 10:40 omeprazole Allergy Rash Verified 05/24/17 10:40 Date of admission: 06/08/17 17:15 Primary care physician: Fermin Horton DO Consults: 06/09/17 07:27 Consult to Occupational Therapy [CONS] Routine Comment: swing Reason for Consult: evaluate, develop, and implement plan of care Does patient have active BEDREST order?: No Is patient medically & hemodynamically stable?: Yes Consult to Physical Therapy [CONS] Routine Comment: swing Reason for Consult: evaluate, develop, and implement plan of care Does patient have active BEDREST order?: No Is patient medically & hemodynamically stable?: Yes Consult to Rn Oncology Research [CONS] Routine Reason for SW Consult: discharge planning - Constitutional Vitals: Temp Pulse Resp BP Pulse Ox 98.8 F 81 20 131/65 93 06/25/17 07:22 06/25/17 07:22 06/25/17 07:22 06/25/17 07:22 06/25/17 07:22 - Patient Status Disposition: Home Health Service Functional capacity at discharge: independent ambulation Overall status at discharge: patient is progressing back to baseline - Discharge Instructions Follow Up With: Fermin Horton DO [Primary Care Provider] - 1 week - Diet and Activity Activity: as per physical therapy, resume usual activities as tolerated Diet: advance to your usual diet - VTE Documentation of Mechanical Device: Graduated compression elastic hosiery
--- NOTE | 2017-06-25 09:46 | Physician Discharge Referral ---
Home Health/Hosp Referral Info Transfer to: Home Health Attending Provider: Cole Provider in Charge Post Discharge: PCP (Clifford) - Diagnosis (1) Empyema of right pleural space Priority: Primary Status: Acute (2) Diabetes Priority: Secondary Status: Chronic (3) Pelvic mass Priority: Secondary Status: Acute (4) Essential hypertension Priority: Secondary Status: Chronic (5) A-fib Priority: Secondary Status: Chronic (6) Anemia Priority: Secondary Status: Chronic (7) Dyspnea on exertion Priority: Secondary Status: Acute - Respiratory Orders Smoking Cessation: Smoking cessation has been advised. For more information, call the [place] Tobacco Quit Line at 6-640-FJAF-NOW. - Diet/Nutrition Diet/Nutrition Orders: Cardiac - Activity Activity Orders: Ambulate - Services Needed Following services are medically necessary services: Nursing, Home Health Aide, Physical Therapy, Occupational Therapy - Transfer Medications Prescriptions: Ascorbic Acid [Vitamin C] 500 mg PO 0630 #30 tablet Ferrous Sulfate 325 mg PO 0630 #30 tablet Lisinopril [Zestril] 10 mg PO DAILY #30 tablet Home Medications: Benzonatate [Tessalon] 100 mg PO TID #20 capsule 05/22/17 [Rx] Albuterol Neb [Proventil Neb] 2.5 mg IH Q6H PRN 05/24/17 [History] Albuterol Sulfate [Albuterol Inhaler] 2 puff IH QID PRN 05/24/17 [History] Aspirin [Lo-Dose Aspirin EC] 81 mg PO DAILY 05/24/17 [History] Cholecalciferol (Vitamin D3) [Vitamin D3] 5,000 unit PO QWEEK 05/24/17 [History] Liraglutide [Victoza 3-Rene] 1.2 mg PO DAILY 05/24/17 [History] Meclizine HCl [Verticalm] 25 mg PO DAILY PRN 05/24/17 [History] Ranitidine HCl [Acid Courtroom Reporter] 150 mg PO BID PRN 05/24/17 [History] Sertraline [Zoloft] 50 mg PO DAILY 05/24/17 [History] Apixaban [Eliquis] 5 mg PO BID #60 tablet 06/07/17 [Rx] Diltiazem CD (24hr) [Cardizem CD] 120 mg PO DAILY #30 cap.er.24h 04/17/18 [Rx] Docusate [Colace] 100 mg PO BID #30 capsule 06/07/17 [Rx] Methocarbamol [Robaxin] 500 mg PO Q6HR PRN #30 tablet 06/07/17 [Rx] Metoprolol [Lopressor] 25 mg PO BID #60 tablet 06/07/17 [Rx] Zolpidem [Ambien] 5 mg PO HS PRN 5 Days #5 tablet 06/07/17 [Rx] Ascorbic Acid [Vitamin C] 500 mg PO 0630 #30 tablet 06/25/17 [Rx] Ferrous Sulfate 325 mg PO 0630 #30 tablet 06/25/17 [Rx] Lisinopril [Zestril] 10 mg PO DAILY #30 tablet 06/25/17 [Rx] Allergies/Adverse Reactions: 3 Allergy/AdvReac Type Severity Reaction Status Date / Time Amoxicillin [From Augmentin] Allergy Rash Verified 05/24/17 10:40 azithromycin Allergy Hives Verified 05/24/17 10:40 cephalexin Allergy See Verified 06/07/17 11:56 Comments clavulanic acid Allergy Rash Verified 05/24/17 10:40 [From Augmentin] doxycycline Allergy Rash Verified 05/24/17 10:40 omeprazole Allergy Rash Verified 05/24/17 10:40 Certification: Further, I certify that my clinical findings support that this patient is homebound (i.e. absences from home require considerable and taxing effort and are for medical reasons or roman catholic services or infrequently or short duration when for other reasons) because: Homebound Reason: Leaving home requires considerable and taxing effort due to condition (Dyspnea on exertion) Attestation: My signature below is to certify that this patient is under my care and that I, or nurse practitioner, or a physician's seismic survey assistant working with me, has a face-to -face encounter with this patient.
[2017-06-25] MEDS: cefTRIAXone 2,000 MG in Water for inj. (sterile) 20 ML 20 ML IVP SCH (10:10)
[2017-06-25] MEDS: Diltiazem CD (24hr) 120 MG CAPSULE PO SCH (10:10)
[2017-06-25] MEDS: Lactobacillus 1 EACH CAP.SPRINK PO SCH (10:10)
[2017-06-25] MEDS: Aspirin Enteric Coated 81 MG Tablet PO SCH (10:11)
[2017-06-25] MEDS: Famotidine 20 MG TABLET PO PRN (10:11)
[2017-06-25] MEDS: Cholecalciferol (D-3) 1,000 UNIT TABLET PO SCH (10:11)
[2017-06-25] MEDS: (Liraglutide [Victoza 3-Pak] 1.2 MG) PO SCH (10:11)
[2017-06-25] MEDS: Apixaban 5 MG TABLET PO SCH (10:12)
== END 2017-06-25 14:25 | disposition home health service (06) | DRG 945 ==
LOC: INPPIK 17:15
PROVIDERS: ADMIT Internal Medicine; ATTEND Internal Medicine

== ENCOUNTER 2017-07-17 17:00 | Inpatient (IN) ==
[2017-07-17] MEDS ORDERED: Albuterol 2.5 MG/3 ML NEBULIZER IH PRN (18:19)
[2017-07-17] MEDS ORDERED: Ibuprofen 600 MG TABLET PO PRN (19:02)
[2017-07-17] MEDS ORDERED: *HR* OxyCODONE Immed Rel 5 MG TABLET PO PRN (19:03)
[2017-07-17] MEDS: Famotidine 20 MG TABLET PO SCH (20:29)
[2017-07-17] MEDS: Apixaban 5 MG TABLET PO SCH (20:29)
[2017-07-17] MEDS ORDERED: Vancomycin Oral Soln 125 MG/2.5 ML UDC PO SCH (21:00)
[2017-07-18 05:08] LABS: Basophils % 0.4 %; Eosinophils # 0.4 K/mcL (0.0-0.6); Eosinophils % 4.7 %; Hematocrit 28.4 % (35.3-44.9); Hemoglobin 9.3 g/dL (11.5-15.4); Immature Granulocytes % 0.8 % (0-4); Lymphocytes # 2.2 K/mcL (0.6-4.6); Lymphocytes % 24.3 %; Mean Corpuscular HGB Conc 32.7 g/dL (31.6-35.5); Mean Corpuscular Volume 88.5 fL (83.0-100.0); Mean Platelet Volume 9.3 fL (9.4-12.4); Monocytes # 0.4 K/mcL (0.0-1.3); Monocytes % 4.5 %; Platelet Count 295 K/mcL (140-400); Red Blood Count 3.21 M/mcL (3.82-4.97); Red Cell Distribution Width 13.9 % (11.5-14.5); Segmented Neutrophils % 65.3 %
[2017-07-18 05:19] LABS: INR 1.5; Prothrombin Time 16.6 Seconds (9.4-12.1)
[2017-07-18 05:22] LABS: Activated Partial Thrombo Time 34.4 Seconds (26.0-36.0)
[2017-07-18 05:32] LABS: eGFR For African Americans > 60 (> 60); eGFR For Non-African Americans > 60 (> 60)
[2017-07-18] MEDS: Ascorbic Acid 500 MG TABLET PO SCH (06:32)
[2017-07-18] MEDS: Cholecalciferol (D-3) 1,000 UNIT TABLET PO SCH (10:30)
[2017-07-18] MEDS: Famotidine 20 MG TABLET PO SCH (10:30)
[2017-07-18] MEDS: Lactobacillus 1 EACH CAP.SPRINK PO SCH (10:30)
[2017-07-18] MEDS: Diltiazem CD (24hr) 120 MG CAPSULE PO SCH (10:30)
[2017-07-18] MEDS: Aspirin Enteric Coated 81 MG Tablet PO SCH (10:30)
[2017-07-18] MEDS: Fluticasone Propionate Nasal 50 MCG/SPRAY BOTTLE NS SCH (10:31)
[2017-07-18] MEDS: Apixaban 5 MG TABLET PO SCH ×2 (10:32→20:25)
[2017-07-18] MEDS: Vancomycin Oral Soln 125 MG/2.5 ML UDC PO SCH ×4 (10:33→20:29)
--- NOTE | 2017-07-18 11:59 | Internal Med History&Physical ---
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 As per oncologist. (2) Diabetes Current visit: No Status: Chronic Diet controlled. Hemoglobin A1c was 6.7% on 06/10/2017. Qualifiers: Diabetes mellitus type: type 2 Diabetes mellitus custodial insulin use: without revenue stamper use Diabetes mellitus complication status: with hyperglycemia Qualified Code(s): E11.65 - Type 2 diabetes mellitus with hyperglycemia (3) A-fib Current visit: No Status: Chronic Continue Eliquis Qualifiers: Atrial fibrillation type: paroxysmal Qualified Code(s): I48.0 - Paroxysmal atrial fibrillation (4) Anemia Current visit: No Status: Chronic Continue ferrous sulfate and vitamin C Qualifiers: Anemia type: other cause Other causes of anemia: chronic disease, other Qualified Code(s): D63.8 - Anemia in other chronic diseases classified elsewhere (5) C. difficile colitis Current visit: Yes Status: Acute Continue oral vancomycin Internal Medicine - H&P: HPI Chief complaint: Status post ovarian mass resection Admitted From: Hospital to Hospital Transfer Plans for Post Hospital Care: Home History of present illness: Ms. Serrato is a 72 year old female who underwent resection of a 20 cm left ovarian mass at [facility] last week. 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 Omentectomy and GI/BSO were done with biopsies to evaluate for local metastases. She developed C. difficile colitis from probable antibiotic use. She was discharged [facility] swing bed for ongoing care needs. The patient is unaware that there was malignancy found in the mass. She is also unaware it was of ovarian etiology. She denies other internal malignancies. She has anemia with anemia testing done during May 2017 [facility] stay showing probable iron deficiency. She has been prescribed ferrous sulfate with vitamin C. Past Med Surg Social Fam HX - Past Medical History Medical history: asthma, diabetes, GERD, hypertension, other Psychiatric history: no psych history - Past Surgical History Surgical History: no surgical history - Social History Smoking Status: Former smoker Smokeless Tobacco Status: No Alcohol use: none Drug use: none - Family History Brother Hx Family Cardiac Disorders: Yes Internal Medicine - H&P: Meds Albuterol Neb [Proventil Neb] 2.5 mg IH Q6H PRN 05/24/17 [History] Albuterol Sulfate [Albuterol Inhaler] 2 puff IH QID PRN 05/24/17 [History] Aspirin [Lo-Dose Aspirin EC] 81 mg PO DAILY 05/24/17 [History] Cholecalciferol (Vitamin D3) [Vitamin D3] 5,000 unit PO QWEEK 05/24/17 [History] Liraglutide [Victoza 3-Rene] 1.2 mg PO DAILY 05/24/17 [History] Meclizine HCl [Verticalm] 25 mg PO DAILY PRN 05/24/17 [History] Ranitidine HCl [Acid Director Consumer] 150 mg PO BID PRN 05/24/17 [History] Sertraline [Zoloft] 50 mg PO DAILY 05/24/17 [History] Apixaban [Eliquis] 5 mg PO BID #60 tablet 06/07/17 [Rx] Diltiazem CD (24hr) [Cardizem CD] 120 mg PO DAILY #30 cap.er.24h 06/07/17 [Rx] Docusate [Colace] 100 mg PO BID #30 capsule 06/07/17 [Rx] Metoprolol [Lopressor] 25 mg PO BID #60 tablet 06/07/17 [Rx] Ascorbic Acid [Vitamin C] 500 mg PO 0630 #30 tablet 06/25/17 [Rx] Ferrous Sulfate 325 mg PO 0630 #30 tablet 06/25/17 [Rx] Lisinopril [Zestril] 10 mg PO DAILY #30 tablet 06/25/17 [Rx] 3 Allergy/AdvReac Type Severity Reaction Status Date / Time Amoxicillin [From Augmentin] Allergy Rash Verified 05/24/17 10:40 azithromycin Allergy Hives Verified 05/24/17 10:40 cephalexin Allergy See Verified 06/07/17 11:56 Comments clavulanic acid Allergy Rash Verified 05/24/17 10:40 [From Augmentin] doxycycline Allergy Rash Verified 05/24/17 10:40 omeprazole Allergy Rash Verified 05/24/17 10:40 All Systems PM: A 10-system review of systems was performed and is negative for pertinent findings except as documented above in the HPI. Review of systems: Gen.: Her weight has decreased from 80.286 kg on 06/08/2017 to 73.936 kg on admission now Cardiovascular: She has history of hypertension and was found to have atrial fibrillation during her May 2017 [facility] stay. She denies heart failure [place] DVT or pulmonary embolus Respiratory: She smoked from age [age] up to 2 packs per days. She had PFTs approximately 2012 and was told she had COPD. She does not wear home oxygen. She was in [facility] swing bed May 2017 following video assisted thorascopic decortication with pleural space washout at [facility] for large right pleural effusion. She was given 4 weeks IV antibiotics for empyema. GI: She denies disorders of her liver gallbladder or exocrine pancreas : She has kidney stones. She denies other kidney or bladder disorders Neurologic: She denies large distribution strokes or seizures. Endocrine: She was diagnosed with DM 2 approximately 2011. She denies thyroid disease or hyperlipidemia Hematology/oncology: As per history of present illness Psychiatric: She has anxiety and depression but denies other mental health issues [place] skeletal: She has DJD but denies gout or other bone joint or muscle disorders. - Constitutional Vitals: Temp Pulse Resp BP Pulse Ox 97.8 F 77 20 187/78 94 07/18/17 06:54 07/18/17 06:54 07/18/17 06:54 07/18/17 06:54 07/18/17 06:54 Exam: Gen.: She is a well-developed well-nourished female resting comfortably in bed who appears in no acute distress HEENT: Head is atraumatic and normocephalic. Eyes: EOMI. There is no scleral icterus. Mouth: Mucosa is moist. Neck: Supple and nontender. There is no thyromegaly or adenopathy noted. Heart: Regular without murmurs gallops or ectopics Lungs: No wheezes or crackles are heard. Abdomen: She has abdominal incision was staple closure extending from the lower epigastric area to the suprapubic area. No drainage is noted. The abdomen is mildly tender to palpation in the bernie-incisional area. Extremities: There is no cyanosis edema or clubbing noted. Dorsalis pedis and posttibial pulses are 1-2 over 2 bilaterally. Neurologic: Mental status: She is talkative and a good historian. Cranial nerves: Smile is symmetric. Forehead wrinkles bilaterally. Tongue protrudes midline. EOMI. Motor: There is no pronator drift. Cerebellar: Finger to nose is intact bilaterally. Skin: Warm and dry Internal Med - H&P Results - Labs CBC & Chem 7: 07/18/17 04:58 07/18/17 04:58 Labs: Short CBC 07/18/17 Range/Units 04:58 WBC 9.1 (4.3-11.1) K/mcL Hgb 9.3 L (11.5-15.4) g/dL Hct 28.4 L (35.3-44.9) % Plt Count 295 (140-400) K/mcL Neutrophils # 6.0 (1.6-8.9) K/mcL BMP 07/18/17 04:58 Creatinine 0.46 L
[2017-07-18] MEDS ORDERED: Famotidine 20 MG TABLET PO PRN (12:10)
[2017-07-18] MEDS: *HR* OxyCODONE Immed Rel 5 MG TABLET PO PRN ×2 (12:48→16:50)
[2017-07-19] MEDS: Ascorbic Acid 500 MG TABLET PO SCH (06:20)
[2017-07-19] MEDS: Apixaban 5 MG TABLET PO SCH ×2 (07:45→20:37)
[2017-07-19] MEDS: Aspirin Enteric Coated 81 MG Tablet PO SCH (07:45)
[2017-07-19] MEDS: Fluticasone Propionate Nasal 50 MCG/SPRAY BOTTLE NS SCH (07:45)
[2017-07-19] MEDS: Cholecalciferol (D-3) 1,000 UNIT TABLET PO SCH (07:46)
[2017-07-19] MEDS: Diltiazem CD (24hr) 120 MG CAPSULE PO SCH (07:46)
[2017-07-19] MEDS: Lactobacillus 1 EACH CAP.SPRINK PO SCH (07:46)
[2017-07-19] MEDS: Vancomycin Oral Soln 125 MG/2.5 ML UDC PO SCH ×4 (07:47→20:35)
--- NOTE | 2017-07-19 11:42 | Internal Med Progress Note ---
Date of Encounter: 07/19/17 Time of Encounter: 11:35 - Assessment and plan (1) Pelvic mass Current Visit: No Status: Acute Assessment and plan: July 19. 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 Regional biopsy reports pending. She is unaware of that malignancy was seen within the tumor. Follow-up as per oncology. (2) Diabetes Current Visit: No Status: Chronic Assessment and plan: July 19. Diet-controlled. Hemoglobin A1c was 6.7% on 06/10/2017. Qualifiers: Diabetes mellitus type: type 2 Diabetes mellitus middle or intermediate school principal insulin use: without middle or intermediate school principal use Diabetes mellitus complication status: with hyperglycemia Qualified Code(s): E11.65 - Type 2 diabetes mellitus with hyperglycemia (3) A-fib Current Visit: No Status: Chronic Assessment and plan: July 19. Continue Eliquis Qualifiers: Atrial fibrillation type: paroxysmal Qualified Code(s): I48.0 - Paroxysmal atrial fibrillation (4) Anemia Current Visit: No Status: Chronic Assessment and plan: July 19. Continue ferrous sulfate with vitamin C. Qualifiers: Anemia type: other cause Other causes of anemia: chronic disease, other Qualified Code(s): D63.8 - Anemia in other chronic diseases classified elsewhere (5) C. difficile colitis Current Visit: Yes Status: Acute Assessment and plan: July 19. Continue oral vancomycin. (6) Essential hypertension Current Visit: No Status: Chronic Assessment and plan: July 19. Inadequate control. Will increase Cardizem. Continue lisinopril and metoprolol. - Subjective Interval history: July 19. She has no new complaints. She is still having some discomfort in her abdomen near the incision. - Constitutional Vitals: Temp Pulse Resp BP Pulse Ox 99 F 82 18 181/78 97 07/19/17 06:00 07/19/17 06:00 07/19/17 06:00 07/19/17 06:00 07/19/17 06:00 Exam: She is resting comfortably in bed and appears in no acute distress. Her affect is cheerful. I reviewed her medications and lab results. Internal Medicine: Result - Labs CBC & Chem 7: 07/18/17 04:58 07/18/17 04:58 - ABG Interpretation ABG results: PT/INR, D-dimer PT 16.6 Seconds (9.4-12.1) H 05/28/18 04:58 Consult Discharge Plan - Plan Referrals: Fermin Horton, [Primary Care Provider] - 1 week
[2017-07-19] MEDS: *HR* OxyCODONE Immed Rel 5 MG TABLET PO PRN (17:38)
[2017-07-19] MEDS: Simethicone 80 MG TAB.CHEW PO PRN (18:34)
[2017-07-20] MEDS: Ascorbic Acid 500 MG TABLET PO SCH (05:42)
[2017-07-20] MEDS: Diltiazem CD (24hr) 240 MG CAPSULE PO SCH (10:43)
[2017-07-20] MEDS: Lactobacillus 1 EACH CAP.SPRINK PO SCH (10:44)
[2017-07-20] MEDS: Aspirin Enteric Coated 81 MG Tablet PO SCH (10:44)
[2017-07-20] MEDS: Vancomycin Oral Soln 125 MG/2.5 ML UDC PO SCH ×4 (10:44→20:55)
[2017-07-20] MEDS: Cholecalciferol (D-3) 1,000 UNIT TABLET PO SCH (10:44)
[2017-07-20] MEDS: Apixaban 5 MG TABLET PO SCH ×2 (10:44→20:53)
[2017-07-20] MEDS: Fluticasone Propionate Nasal 50 MCG/SPRAY BOTTLE NS SCH (10:45)
[2017-07-20] MEDS: Simethicone 80 MG TAB.CHEW PO PRN (13:46)
[2017-07-20] MEDS: *HR* OxyCODONE Immed Rel 5 MG TABLET PO PRN (20:53)
[2017-07-21] MEDS: Ascorbic Acid 500 MG TABLET PO SCH (05:47)
[2017-07-21] MEDS: Lactobacillus 1 EACH CAP.SPRINK PO SCH (08:53)
[2017-07-21] MEDS: Diltiazem CD (24hr) 240 MG CAPSULE PO SCH (08:53)
[2017-07-21] MEDS: Cholecalciferol (D-3) 1,000 UNIT TABLET PO SCH (08:53)
[2017-07-21] MEDS: Aspirin Enteric Coated 81 MG Tablet PO SCH (08:53)
[2017-07-21] MEDS: Apixaban 5 MG TABLET PO SCH ×2 (08:53→22:36)
[2017-07-21] MEDS: Vancomycin Oral Soln 125 MG/2.5 ML UDC PO SCH ×3 (08:54→17:39)
[2017-07-21] MEDS: Fluticasone Propionate Nasal 50 MCG/SPRAY BOTTLE NS SCH (08:55)
--- NOTE | 2017-07-21 14:33 | Internal Med Progress Note ---
Date of Encounter: 07/21/17 Time of Encounter: 14:00 - Assessment and plan (1) Pelvic mass Current Visit: No Status: Acute Assessment and plan: July 19. 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 Regional biopsy reports pending. She is unaware of that malignancy was seen within the tumor. Follow-up as per oncology. (2) Diabetes Current Visit: No Status: Chronic Assessment and plan: July 19. Diet-controlled. Hemoglobin A1c was 6.7% on 06/10/2017. Qualifiers: Diabetes mellitus type: type 2 Diabetes mellitus manager intermediate insulin use: without manager intermediate use Diabetes mellitus complication status: with hyperglycemia Qualified Code(s): E11.65 - Type 2 diabetes mellitus with hyperglycemia (3) A-fib Current Visit: No Status: Chronic Assessment and plan: July 19. Continue Eliquis Qualifiers: Atrial fibrillation type: paroxysmal Qualified Code(s): I48.0 - Paroxysmal atrial fibrillation (4) Anemia Current Visit: No Status: Chronic Assessment and plan: July 19. Continue ferrous sulfate with vitamin C. Qualifiers: Anemia type: other cause Other causes of anemia: chronic disease, other Qualified Code(s): D63.8 - Anemia in other chronic diseases classified elsewhere (5) C. difficile colitis Current Visit: Yes Status: Acute Assessment and plan: July 19. Continue oral vancomycin. (6) Essential hypertension Current Visit: No Status: Chronic Assessment and plan: July 19. Inadequate control. Will increase Cardizem. Continue lisinopril and metoprolol. - Subjective Interval history: July 19. She has no new complaints. She is still having some discomfort in her abdomen near the incision. July 21. She has no new complaints. - Constitutional Vitals: Temp Pulse Resp BP Pulse Ox 98.6 F 70 18 145/73 97 07/21/17 07:55 07/21/17 07:55 07/21/17 07:55 07/21/17 07:55 07/21/17 07:55 Exam: She is ambulating in the hallway with her walker and the therapist. She is in no acute distress. Her affect is bright and cheerful. I reviewed her medications and lab results. Internal Medicine: Result - Labs CBC & Chem 7: 07/18/17 04:58 07/18/17 04:58 - ABG Interpretation ABG results: PT/INR, D-dimer PT 16.6 Seconds (9.4-12.1) H 07/18/17 04:58 Consult Discharge Plan - Plan Referrals: Fermin Horton DO [Primary Care Provider] - 1 week
[2017-07-21] MEDS: *HR* OxyCODONE Immed Rel 5 MG TABLET PO PRN (23:03)
[2017-07-22] MEDS: Vancomycin Oral Soln 125 MG/2.5 ML UDC PO SCH ×6 (00:30→20:46)
[2017-07-22] MEDS: Ascorbic Acid 500 MG TABLET PO SCH (06:23)
[2017-07-22] MEDS: Lactobacillus 1 EACH CAP.SPRINK PO SCH (09:18)
[2017-07-22] MEDS: Apixaban 5 MG TABLET PO SCH ×2 (09:19→20:45)
[2017-07-22] MEDS: Diltiazem CD (24hr) 240 MG CAPSULE PO SCH (09:19)
[2017-07-22] MEDS: Aspirin Enteric Coated 81 MG Tablet PO SCH (09:19)
[2017-07-22] MEDS: Cholecalciferol (D-3) 1,000 UNIT TABLET PO SCH (09:19)
[2017-07-22] MEDS: Fluticasone Propionate Nasal 50 MCG/SPRAY BOTTLE NS SCH (09:21)
[2017-07-23] MEDS: Ascorbic Acid 500 MG TABLET PO SCH (06:40)
[2017-07-23 09:08] VITALS: BP 154/88
[2017-07-23] MEDS: Lactobacillus 1 EACH CAP.SPRINK PO SCH (09:09)
[2017-07-23] MEDS: Diltiazem CD (24hr) 240 MG CAPSULE PO SCH (09:09)
[2017-07-23] MEDS: Aspirin Enteric Coated 81 MG Tablet PO SCH (09:10)
[2017-07-23] MEDS: Fluticasone Propionate Nasal 50 MCG/SPRAY BOTTLE NS SCH (09:11)
--- NOTE | 2017-07-23 09:11 | Discharge Summary ---
Date of Encounter: 07/23/17 Time of Encounter: 09:00 - Discharge Diagnosis (1) Pelvic mass Priority: Primary Status: Acute (2) Diabetes Priority: Secondary Status: Chronic Qualifiers: Diabetes mellitus type: type 2 Diabetes mellitus terminal carman insulin use: without fdc use Diabetes mellitus complication status: with hyperglycemia Qualified Code(s): E11.65 - Type 2 diabetes mellitus with hyperglycemia (3) A-fib Priority: Secondary Status: Chronic Qualifiers: Atrial fibrillation type: paroxysmal Qualified Code(s): I48.0 - Paroxysmal atrial fibrillation (4) Anemia Priority: Secondary Status: Chronic Qualifiers: Anemia type: other cause Other causes of anemia: chronic disease, other Qualified Code(s): D63.8 - Anemia in other chronic diseases classified elsewhere (5) C. difficile colitis Priority: Secondary Status: Acute (6) Essential hypertension Priority: Secondary Status: Chronic Hospital course: Ms. Serrato is a 72 year old female who underwent resection of a 20 cm left ovarian mass at [facility] last week. 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 Omentectomy and GI/BSO were done with biopsies to evaluate for local metastases. She developed C. difficile colitis from probable antibiotic use. She was discharged [facility] swing bed for ongoing care needs. Initial orders were written by the discharging physicians at [facility]. I saw her on July 18 and performed a swing bed history and physical. She had physical therapy and occupational therapy evaluation with ongoing interventions. She made satisfactory progress and was felt stable for discharge home on July 23. She will follow with her PCP Dr. Horton within 1 week. She will follow with [place] oncologists as directed. Her incision arlette can be removed by PCP office staff as directed by surgeons. Oral vancomycin was continued for C. difficile colitis. She had no symptomatic diarrhea during her hospital stay. She will continue with oral vancomycin for 5 additional days at discharge. Her blood pressure showed inadequate control so Cardizem was increased to 240 mg daily and this will be continued upon discharge. - Time Spent with Patient Total time spent providing and/or coordinating discharge services: - Discharge Medications Prescriptions: Diltiazem CD (24hr) [Cardizem CD] 240 mg PO DAILY #30 cap.er.24h Vancomycin Oral Soln [Firvanq] 125 mg PO QID #50 udc Home Medications: Albuterol Neb [Proventil Neb] 2.5 mg IH Q6H PRN 05/24/17 [History] Albuterol Sulfate [Albuterol Inhaler] 2 puff IH QID PRN 05/24/17 [History] Aspirin [Lo-Dose Aspirin EC] 81 mg PO DAILY 05/24/17 [History] Cholecalciferol (Vitamin D3) [Vitamin D3] 5,000 unit PO QWEEK 05/24/17 [History] Liraglutide [Victoza 3-Reen] 1.2 mg PO DAILY 05/24/17 [History] Meclizine HCl [Verticalm] 25 mg PO DAILY PRN 05/24/17 [History] Ranitidine HCl [Acid Handy Man] 150 mg PO BID PRN 05/24/17 [History] Sertraline [Zoloft] 50 mg PO DAILY 05/24/17 [History] Apixaban [Eliquis] 5 mg PO BID #60 tablet 06/07/17 [Rx] Docusate [Colace] 100 mg PO BID #30 capsule 06/07/17 [Rx] Metoprolol [Lopressor] 25 mg PO BID #60 tablet 06/07/17 [Rx] Ascorbic Acid [Vitamin C] 500 mg PO 0630 #30 tablet 06/25/17 [Rx] Ferrous Sulfate 325 mg PO 0630 #30 tablet 06/25/17 [Rx] Lisinopril [Zestril] 10 mg PO DAILY #30 tablet 06/25/17 [Rx] Diltiazem CD (24hr) [Cardizem CD] 240 mg PO DAILY #30 cap.er.24h 07/23/17 [Rx] Vancomycin Oral Soln [Firvanq] 125 mg PO QID #50 udc 07/23/17 [Rx] Allergies/Adverse Reactions: 3 Allergy/AdvReac Type Severity Reaction Status Date / Time Amoxicillin [From Augmentin] Allergy Rash Verified 05/24/17 10:40 azithromycin Allergy Hives Verified 05/24/17 10:40 cephalexin Allergy See Verified 06/07/17 11:56 Comments clavulanic acid Allergy Rash Verified 05/24/17 10:40 [From Augmentin] doxycycline Allergy Rash Verified 05/24/17 10:40 omeprazole Allergy Rash Verified 05/24/17 10:40 Date of admission: 07/17/17 17:08 Primary care physician: Fermin Horton DO Consults: 07/17/17 18:06 Consult to Occupational Therapy [CONS] Routine Comment: Evaluate, develop and implement POC Reason for Consult: Evaluate, develop and implement POC Does patient have active BEDREST order?: No Is patient medically & hemodynamically stable?: Yes Consult to Physical Therapy [CONS] Routine Comment: Evaluate, develop and implement POC Reason for Consult: Evaluate, develop and implement POC Does patient have active BEDREST order?: No Is patient medically & hemodynamically stable?: Yes - Constitutional Vitals: Temp Pulse Resp BP Pulse Ox 98.7 F 62 16 154/74 94 07/23/17 07:25 07/23/17 07:25 07/23/17 07:25 07/23/17 07:25 07/23/17 07:25 - Patient Status Disposition: Home Health Service Functional capacity at discharge: uses cane/walker Overall status at discharge: patient is progressing back to baseline - Discharge Instructions Follow Up With: Fermin Horton DO [Primary Care Provider] - 1 week - Diet and Activity Activity: as per physical therapy, resume usual activities as tolerated Diet: advance to your usual diet
[2017-07-23] MEDS: Vancomycin Oral Soln 125 MG/2.5 ML UDC PO SCH (09:12)
--- NOTE | 2017-07-23 09:17 | Physician Discharge Referral ---
Home Health/Hosp Referral Info Transfer to: Home Health Attending Provider: Cole Provider in Charge Post Discharge: PCP ([facility]) - Diagnosis (1) Pelvic mass Priority: Primary Status: Acute (2) Diabetes Priority: Secondary Status: Chronic (3) A-fib Priority: Secondary Status: Chronic (4) Anemia Priority: Secondary Status: Chronic (5) C. difficile colitis Priority: Secondary Status: Acute (6) Essential hypertension Priority: Secondary Status: Chronic - Respiratory Orders Smoking Cessation: Smoking cessation has been advised. For more information, call the [place] Tobacco Quit Line at 7-730-VUFM-NOW. - Diet/Nutrition Diet/Nutrition Orders: Regular - Activity Activity Orders: Ambulate - Services Needed Following services are medically necessary services: Nursing, Home Health Aide, Physical Therapy, Occupational Therapy - Transfer Medications Prescriptions: Diltiazem CD (24hr) [Cardizem CD] 240 mg PO DAILY #30 cap.er.24h Vancomycin Oral Soln [Firvanq] 125 mg PO QID #50 udc Home Medications: Albuterol Neb [Proventil Neb] 2.5 mg IH Q6H PRN 05/24/17 [History] Albuterol Sulfate [Albuterol Inhaler] 2 puff IH QID PRN 05/24/17 [History] Aspirin [Lo-Dose Aspirin EC] 81 mg PO DAILY 05/24/17 [History] Cholecalciferol (Vitamin D3) [Vitamin D3] 5,000 unit PO QWEEK 05/24/17 [History] Liraglutide [Victoza 3-Rene] 1.2 mg PO DAILY 05/24/17 [History] Meclizine HCl [Verticalm] 25 mg PO DAILY PRN 05/24/17 [History] Ranitidine HCl [Acid Support Analyst] 150 mg PO BID PRN 05/24/17 [History] Sertraline [Zoloft] 50 mg PO DAILY 05/24/17 [History] Apixaban [Eliquis] 5 mg PO BID #60 tablet 06/07/17 [Rx] Docusate [Colace] 100 mg PO BID #30 capsule 06/07/17 [Rx] Metoprolol [Lopressor] 25 mg PO BID #60 tablet 06/07/17 [Rx] Ascorbic Acid [Vitamin C] 500 mg PO 0630 #30 tablet 06/25/17 [Rx] Ferrous Sulfate 325 mg PO 0630 #30 tablet 06/25/17 [Rx] Lisinopril [Zestril] 10 mg PO DAILY #30 tablet 06/25/17 [Rx] Diltiazem CD (24hr) [Cardizem CD] 240 mg PO DAILY #30 cap.er.24h 07/23/17 [Rx] Vancomycin Oral Soln [Firvanq] 125 mg PO QID #50 udc 07/23/17 [Rx] Allergies/Adverse Reactions: 3 Allergy/AdvReac Type Severity Reaction Status Date / Time Amoxicillin [From Augmentin] Allergy Rash Verified 05/24/17 10:40 azithromycin Allergy Hives Verified 05/24/17 10:40 cephalexin Allergy See Verified 06/07/17 11:56 Comments clavulanic acid Allergy Rash Verified 05/24/17 10:40 [From Augmentin] doxycycline Allergy Rash Verified 05/24/17 10:40 omeprazole Allergy Rash Verified 05/24/17 10:40 Certification: Further, I certify that my clinical findings support that this patient is homebound (i.e. absences from home require considerable and taxing effort and are for medical reasons or sabianism services or infrequently or short duration when for other reasons) because: Homebound Reason: Post-surgery restriction and or conditions limit ability to leave home (Status post abdominal mass resection with limited ambulatory ability.) Attestation: My signature below is to certify that this patient is under my care and that I, or nurse practitioner, or a physician's lead dental assistant working with me, has a face-to -face encounter with this patient.
[2017-07-23] MEDS: Cholecalciferol (D-3) 1,000 UNIT TABLET PO SCH (09:25)
[2017-07-23] MEDS: Apixaban 5 MG TABLET PO SCH (09:25)
== END 2017-07-23 11:05 | disposition home health service (06) | DRG 949 ==
LOC: INPPIK 17:08
PROVIDERS: ADMIT Internal Medicine; ATTEND Internal Medicine